=== PATIENT | male | born 1945 | race Two or more races ===

== ENCOUNTER 2021-02-18 22:26 | Emergency (ER) | payer OTHER ==
[~2021-02-18] VITALS: Ht 170.2 cm; Wt 61.2 kg
[2021-02-18] MEDS ORDERED: VERAPAMIL ER240 MG PO (22:55)
[2021-02-19] MEDS ORDERED: CIPRO500 MG PO (06:37)
[2021-02-19] MEDS ORDERED: INTESTINEX680 M1 PO (06:37)
[2021-02-19] MEDS ORDERED: LEVSIN/SL0.125 MG SL (06:37)
== END 2021-02-19 06:46 | disposition home or self-care (01) ==
LOC: ER 22:26
DX: R19.7 Diarrhea, unspecified (principal)

== ENCOUNTER 2022-04-02 11:19 | Emergency (ER) | payer OTHER ==
[~2022-04-02] VITALS: Ht 170.2 cm; Wt 515.3 kg
[~2022-04-02 11:19] MED LIST: CIPRO500 MG PO; INTESTINEX680 M1 PO; LEVSIN/SL0.125 MG SL; VERAPAMIL ER240 MG PO
== END 2022-04-02 17:36 ==
LOC: ER 11:19
DX: R41.0 Disorientation, unspecified (principal); R53.81 Other malaise; I10 Essential (primary) hypertension

== ENCOUNTER 2023-06-29 06:42 | Day surgery (SDC) | payer OTHER ==
[~2023-06-29] VITALS: Ht 167.6 cm; Wt 61.2 kg
[~2023-06-29 06:42] MED LIST changes: +REMINYL4 MG PO
[2023-06-29] MEDS ORDERED: TYLENOL ARTHRI650 MG PO (09:44)
[2023-06-29] MEDS ORDERED: MIRALAX17 GM PO (09:44)
[2023-06-29] MEDS ORDERED: TRAMADOL HCL50 MG PO (09:44)
[2023-06-29] MEDS ORDERED: KETO10TA2 PO (10:55)
== END 2023-06-29 17:35 | disposition home or self-care (01) ==
LOC: CIR.AMB 06:42
PROVIDERS: ATTEND Surgery
DX: K40.90 Unilateral inguinal hernia, without obstruction or gangrene, not specified as recurrent (principal); K42.9 Umbilical hernia without obstruction or gangrene; I10 Essential (primary) hypertension; R10.9 Unspecified abdominal pain; Z20.822 Contact with and (suspected) exposure to COVID-19
CPT/HCPCS: 49650; 49591; C1781